=== PATIENT | male | born 1980 | race Caucasian/White ===

== ENCOUNTER 2025-02-15 14:45 | Emergency (ER) | payer BC, SELFPAY ==
[2025-02-15 14:48] VITALS: BP 125/92
[2025-02-15] MEDS: DECADRON 10 MG PO (16:33)
--- NOTE | 2025-02-15 19:08 | ED.GENMED ---
History of Present Illness
General
Chief Complaint: Back Pain
Source: patient
Exam Limitations: none
Time Seen by Provider: 02/15/25 16:10
Nursing documentation reviewed up to this point in time: agreed with
History of Present Illness
History of Present Illness:
44 yo male with h/o chronic left lower back pain, followed by pain management Dr. Alexandra, due to have epidural injection in 4 days. One week ago he developed pain in right lower back that radiates to the front of his thigh and is worsening to the
point he has to use a cane and he could not get off the floor today due to severe spasms. He has been using the Flexeril and Meloxicam he has for his chronic back pain with no relief. Denies loss of bowel or bladder control, no saddle anesthesia or
weakness.
Past History
Past History
ED Past Medical History: Other (chronic left lower back pain, under pain management)
ED Past Surgical History: Other (vaectomy)
Social History
Tobacco: Non-smoker
Alcohol: Occasional
Living: alone
Review of Systems
Review of Systems
Allergies reviewed?: Yes
All Other Systems: ROS reviewed and negative except as documented in HPI and ROS
Phy Exam
Physical Exam
Physical Exam:
GENERAL: No acute distress. A&Ox3.
CONSTITUTIONAL: Afebrile.
EYES: clear, conjunctivae normal
ENMT: moist mucus membranes, Pharynx nl
RESPIRATORY: Regular respirations, nonlabored, lungs clear.
CARDIOVASCULAR: Regular rate and rhythm, no murmurs, no rubs.
GI: Soft, nontender, normal BS
MUSCULOSKELETAL: Tender over right SI joint. SLR with each leg elicits pain. OOB wheelchair, off and on stretcher independently but slowly. Generally limited ROM of back. Well perfused.
SKIN: Warm, dry, pink
PSYCH: Normal mood and affect. Well kept, interactive and appropriate. Strength equal 5/5 bilateral LE. Equal patellar reflexes.
NEUROLOGIC: Awake, alert and oriented. No focal neurological deficits
Course
Orders/Labs/Results
Orders:
Orders
02/15/25 16:23
Dexamethasone [Decadron] 10 mg PO NOW STA
Vital Signs
Initial and Last Documented VS:
Initial Vital Signs
Temp Pulse Resp BP Pulse Ox
98.5 F 87 18 125/92 98
02/15/25 14:48 02/15/25 14:48 02/15/25 14:48 02/15/25 14:48 02/15/25 14:48
Last Documented Vital Signs
Temp Pulse Resp BP Pulse Ox
98.5 F 87 18 125/92 98
02/15/25 14:48 02/15/25 14:48 02/15/25 14:48 02/15/25 14:48 02/15/25 19:20
MDM/Problems Addressed
Differential Diagnosis Includes:
SI joint sprain, low back pain with sciatica
MDM/Problems Addressed:
44 yo male with h/o chronic left lower back pain, followed by pain management Dr. Alexandra, due to have epidural injection in 4 days. One week ago he developed pain in right lower back that radiates to the front of his thigh and is worsening to the
point he has to use a cane and he could not get off the floor today due to severe spasms. He has been using the Flexeril and Meloxicam he has for his chronic back pain with no relief. Denies loss of bowel or bladder control, no saddle anesthesia or
weakness.
Afebrile
No neuro deficits.
Pt up and ambulating slowly with his cane with significant pain.
Since he will be seen in 4 days by his pain management doctor for his previous pain on the opposite side of his low back, for epidural injection, and since no relief with meloxicam and Flexeril, Rx for short burst of prednisone and #5 hydrocodone
sent to his pharmacy
*Pulse Oximetry
SaO2: 98
Oxygen Mode of Delivery: Room air
Patient hypoxic: not evaluated
*Critical Care Note
Total Time (30-74mins, 75-104mins- exclusive of procedures): Not Applicable
ED Attending Note
-
Portions of this chart may have been created with voice recognition software.� Occasional wrong word or��sound alike� substitutions may have occurred due to the inherent limitations of voice recognition software.
Discharge Plan
Departure
Patient Disposition: Home (Routine Discharge)
Date of Disposition: 02/15/25
Time of Disposition: 16:24
Patient with high blood pressure during this ER visit?: No
Condition: Fair
Discharge Problem:
Acute right-sided low back pain, Sacroiliac (ligament) sprain
Instructions: Low Back Pain (DC), Radiculopathy (DC), Sacroiliac Joint Pain (DC)
Prescriptions:
New
prednisone 20 mg tablet
40 mg PO DAILY Qty: 6 0RF
hydrocodone-acetaminophen 5-325 mg tablet
1 tab PO Q8H PRN (Reason: Pain) Qty: 5 0RF
Referrals:
Roman Alexandra, DO [Non-Admitting Privileges, Orthopedics] - Keep scheduled appt
Activity Restrictions/Additional Instructions:
As we discussed, continue the meloxicam and Flexeril as ordered
You were given a dose of Decadron 10 mg here today this is a steroid.
I sent a prescription for prednisone to your pharmacy to take 40 mg a day for the next 3 days.
Use the hydrocodone/acetaminophen (Vicodin) if needed for severe pain
Keep your appointment Monday with Dr. Alexandra.
Interventions
Interventions:
*Risk Screen - Suicide Last Done: 02/15/25 14:48
*General Assessment Last Done: 02/15/25 14:48
*ED- Fall Risk Assessment Last Done: 02/15/25 14:48
*ED COVID-19 Vaccine History Last Done: 02/15/25 14:48
*Nursing Disposition Last Done: 02/15/25 16:56
Discharge Date and Time
Discharge Date/Time: 02/15/25 16:57
Print Language: UGANDAN
== END 2025-02-15 16:57 | disposition home or self-care (01) ==
LOC: EMR 14:45
PROVIDERS: EMERGENCY PHYSICIAN Emergency Medicine; FAMILY PHYSICIAN Internal Medicine
DX: M54.50 Low back pain, unspecified (principal); S33.6XXA Sprain of sacroiliac joint, initial encounter; X58.XXXA Exposure to other specified factors, initial encounter
CPT/HCPCS: 99282